=== PATIENT | male | born 1975 | race Caucasian/White ===

== ENCOUNTER 2021-01-02 22:36 | Emergency (ER) | payer MEDICAID ==
[~2021-01-02] VITALS: Ht 188 cm; Wt 102.3 kg
[2021-01-02 22:45] VITALS: BP 135/81
[2021-01-02 23:53] LABS: BASOPHILS # (AUTO) 0.1 X10'3 (0-0.2); BASOPHILS % (AUTO) 1.2 % (0-1); EOSINOPHILS # (AUTO) 0.1 X10'3 (0-0.9); EOSINOPHILS % (AUTO) 1.6 % (0-6); HEMATOCRIT 41.4 % (42.0-52.0); HEMOGLOBIN 13.8 g/dl (14.0-17.9); LYMPHOCYTES # (AUTO) 0.6 X10'3 (1.1-4.8); LYMPHOCYTES % (AUTO) 6.8 % (21-51); MEAN CORPUSCULAR HEMOGLOBIN 27.7 PG (27.0-31.0); MEAN CORPUSCULAR HGB CONC 33.4 g/dL (33.0-36.5); MEAN CORPUSCULAR VOLUME 82.9 FL (78-98); MEAN PLATELET VOLUME 8.4 FL (7.4-10.4); MONOCYTES # (AUTO) 0.6 X10'3 (0-0.9); MONOCYTES % (AUTO) 6.3 % (2-12); NEUTROPHILS # (AUTO) 7.5 X10'3 (1.8-7.7); NEUTROPHILS % (AUTO) 84.1 % (42-75); PLATELET COUNT 184 X10'3 (140-440); RED BLOOD COUNT 4.99 X10'6 (4.70-6.10); RED CELL DISTRIBUTION WIDTH 14.6 % (11.5-14.5); WHITE BLOOD COUNT 8.9 X10'3 (4.5-11.0)
[2021-01-02 23:54] LABS: ANION GAP 11 (8-16); BLOOD UREA NITROGEN 18 MG/DL (7-18); BUN/CREATININE RATIO 14.2 (5.4-32.0); CALCIUM 9.2 MG/DL (8.5-10.1); CHLORIDE 104 MMOL/L (99-107); CREATININE 1.27 MG/DL (0.60-1.10); GLUCOSE 101 MG/DL (70-104); POTASSIUM 3.9 MMOL/L (3.5-5.1); SODIUM 142 MMOL/L (135-145); TOTAL CARBON DIOXIDE 26.9 MMOL/L (24-32); eGFR 61 ML/MIN
== END 2021-01-03 00:21 | disposition home or self-care (01) ==
LOC: ER 22:37
DX: R55 Syncope and collapse (principal); F12.90 Cannabis use, unspecified, uncomplicated; Z85.841 Personal history of malignant neoplasm of brain
CPT/HCPCS: 36415; 80048; 85025; 93005; 99284

== ENCOUNTER 2021-04-28 22:28 | Emergency (ER) | payer MEDICAID ==
[~2021-04-28] VITALS: Ht 188 cm; Wt 96.2 kg
[2021-04-29] MEDS ORDERED: GABAPENTIN (01:37)
[2021-04-29] MEDS ORDERED: LEVO125T8 PO (01:38)
[2021-04-29 02:29] VITALS: BP 155/77
== END 2021-04-29 02:30 | disposition home or self-care (01) ==
LOC: ER 22:29
DX: I82.811 Embolism and thrombosis of superficial veins of right lower extremity (principal); F12.90 Cannabis use, unspecified, uncomplicated
CPT/HCPCS: 99281